=== PATIENT | female | born 1960 | race Caucasian/White ===

== ENCOUNTER 2016-11-05 06:03 | Emergency (ER) | payer MEDICAID ==
[~2016-11-05] VITALS: Ht 157.5 cm; Wt 91.1 kg
[2016-11-05 07:51] LABS: BLOOD UREA NITROGEN 18 mg/dL (7-18)
[2016-11-05 07:56] LABS: ASPARTATE AMINO TRANSFERASE 21 U/L (15-37)
[2016-11-05 08:00] LABS: IS PT STATUS REG ER OR PRE ER? YES
[2016-11-05 08:27] VITALS: BP 121/82
== END 2016-11-05 08:30 | disposition home or self-care (01) ==
LOC: ED 08:24
DX: J20.9 Acute bronchitis, unspecified (principal); I10 Essential (primary) hypertension; F17.210 Nicotine dependence, cigarettes, uncomplicated; F15.10 Other stimulant abuse, uncomplicated; F12.10 Cannabis abuse, uncomplicated
CPT/HCPCS: 36415; 71020; 80053; 83880; 84484; 85025; 93005; 99285

== ENCOUNTER 2019-05-14 09:48 | Emergency (ER) | payer SELFPAY ==
[~2019-05-14] VITALS: Ht 157.5 cm; Wt 102.1 kg
--- NOTE | 2019-05-14 10:04 | NUR ---
PT TO ED ROOM 34 PER , ACCOMPANIED BY BOYFRIEND, CORINA. PT C/O "I CAN'T BREATHE" STATES SX STARTED "I DON'T KNOW, A LONG TIME AGO". HERE TODAY "BECAUSE I'M SICK AND I DON'T KNOW WHAT'S WRONG WITH ME". RICKY DESAI NOW BS FOR EXAM. PT UNSURE IF SX ARE GETTING WORSE, IF SHE'S BEEN SICK RECENTLY, IF SHE'S HAD A RECENT FEVER. PER PATRICIA: PT HAS A NEB MACHINE AT HOME ([employer]) BUT NO MED FOR MACHINE, "WHEEZES A LOT", "CAN'T WALK 15 FT WITHOUT GETTING WINDED"
[2019-05-14] MEDS ORDERED: SODIUM CHLORIDE FLUSH 10ML SYR IVF ONE (10:30)
--- NOTE | 2019-05-14 10:39 | NUR ---
RESIN MAKER APPLIED. CXR DONE, LABS WERE DRAWN.
[2019-05-14 10:49] LABS: ALBUMIN 3.5 g/dL (3.4-5.0); ANION GAP 7 mmol/L (5-15); CALCIUM 8.1 mg/dL (8.5-10.1); CHLORIDE 103 mmol/L (98-107)
[2019-05-14 10:52] LABS: BASOPHILS # (AUTO) 0.01 x10^3/uL (0-0.1); BASOPHILS % (AUTO) 0 % (0-1); EOSINOPHILS % (AUTO) 0 % (1-7); LYMPHOCYTES # (AUTO) 0.74 x10^3/uL (1-3.4); LYMPHOCYTES % (AUTO) 14 % (22-44); MD NO; MEAN CORPUSCULAR HEMOGLOBIN 30.9 pg (27.0-34.8); MEAN CORPUSCULAR HGB CONC 33.6 g/dL (32.4-35.8); MEAN PLATELET VOLUME 9.7 fL (7.4-10.4); MONOCYTES # (AUTO) 0.32 x10^3/uL (0.2-0.8); MONOCYTES % (AUTO) 6 % (2-9); NEUTROPHILS # (AUTO) 4.17 x10^3/uL (1.8-6.8); NEUTROPHILS % (AUTO) 79 % (42-75); PLATELET COUNT 160 x10^3/uL (130-400); RED BLOOD COUNT 5.24 x10^6/uL (3.82-5.3); RED CELL DISTRIBUTION WIDTH 12.5 % (9.6-15.2)
[2019-05-14 10:55] LABS: ALANINE AMINOTRANSFERASE 25 U/L (12-78); ALKALINE PHOSPHATASE 102 U/L (45-117); BILIRUBIN,TOTAL 0.5 mg/dL (0.2-1.0); CREATININE 1.29 mg/dL (0.55-1.02); TOTAL PROTEIN 6.9 g/dL (6.4-8.2); TROPONIN I 0.019 ng/mL (0.000-0.045)
--- NOTE | 2019-05-14 11:24 | NUR ---
SITTING QUIETLY ON GURNEY, AWAITING RESP TX. CARDIAC & VS MONITORING CONTINUING: NSR O2 SAT 89-90% RA. O2 APPLIED AT 1LNC; SAT INCREASED TO 92%; WILL TITRATE PRN.
--- NOTE | 2019-05-14 11:27 | NUR ---
O2 SAT 95% 1LNC
[2019-05-14] MEDS ORDERED: ALBUTEROL SULFATE 2.5 MG/3 ML NPPB ONE (11:30)
[2019-05-14] MEDS ORDERED: ALBUTEROL SULFATE 2.5 MG/3 ML ONE (11:31)
[2019-05-14] MEDS ORDERED: ALBUTEROL/IPRATROPIUM 2.5MG/0.5MG, 3 ML ONE (12:14)
[2019-05-14] MEDS ORDERED: ALBUTEROL/IPRATROPIUM 2.5MG/0.5MG, 3 ML NPPB ONE (12:30)
[2019-05-14 13:23] VITALS: BP 102/81
== END 2019-05-14 13:47 | disposition home or self-care (01) ==
LOC: ED 10:31
DX: J44.1 Chronic obstructive pulmonary disease with (acute) exacerbation (principal); F17.200 Nicotine dependence, unspecified, uncomplicated
CPT/HCPCS: 36415; 71045; 80053; 83880; 84484; 85025; 93005; 94640; 99284; J7613; J7620